=== PATIENT | female | born 1985 | race Caucasian/White ===

== ENCOUNTER 2016-12-23 13:47 | Emergency (ER) | payer MEDICARE ==
[~2016-12-23 13:47] MED LIST: IBUPROFEN600 MG PO
[2016-12-23 16:44] LABS: HEMOGLOBIN 14.8 gm/dl (12.3-15.3); RED BLOOD COUNT 4.93 M/UL (4.00-5.10); WHITE BLOOD COUNT 9.6 K/UL (4.5-11.0)
[2016-12-23 16:59] LABS: BUN/CREATININE RATIO 16 (0-10)
== END 2016-12-23 18:50 | disposition home or self-care (01) ==
LOC: ER1 13:47
PROVIDERS: Family Medicine
DX: R11.2 Nausea with vomiting, unspecified (principal); R19.7 Diarrhea, unspecified; G43.909 Migraine, unspecified, not intractable, without status migrainosus; Z88.8 Allergy status to other drugs, medicaments and biological substances; Z79.899 Other long term (current) drug therapy
CPT/HCPCS: 36415; 80053; 85025; 96374; 96375; 99284; J2405; J2550